=== PATIENT | female | born 1970 | race Caucasian/White ===

== ENCOUNTER 2019-04-01 13:37 | Outpatient (CLI) | payer OTHER | END 2019-04-01 23:59 | disposition home or self-care (01) | LOC: CFH 13:37 | PROVIDERS: ATTEND Obstetrics & Gynecology Female Pelvic Medicine and Reconstructive Surgery | DX: N63.41 Unspecified lump in right breast, subareolar (principal); R92.1 Mammographic calcification found on diagnostic imaging of breast | CPT/HCPCS: 77065 ==

== ENCOUNTER 2019-06-10 08:10 | Outpatient (CLI) | payer OTHER | END 2019-06-10 23:59 | disposition home or self-care (01) | LOC: CFH 08:10 | PROVIDERS: ATTEND Obstetrics & Gynecology Female Pelvic Medicine and Reconstructive Surgery | DX: N63.10 Unspecified lump in the right breast, unspecified quadrant (principal); Z53.8 Procedure and treatment not carried out for other reasons | CPT/HCPCS: 19081 ==

== ENCOUNTER 2019-08-18 11:53 | Day surgery (SDC) | payer OTHER ==
[~2019-08-18] VITALS: Ht 157.5 cm; Wt 52.2 kg
[~2019-08-18 11:53] MED LIST: BUPIVACAINE/PF 0.5% ONE; HYDR200T72 PO
[2019-08-18] MEDS ORDERED: LIDOCAINE 1%-EPI 1:100K, 20ML ONE (14:19)
[2019-08-18] MEDS ORDERED: SODIUM BICARBONATE 4.2%, 5ML ONE (14:19)
[2019-08-18] MEDS ORDERED: LIDOCAINE 1%, 20ML ONE (14:19)
[2019-08-18] MEDS ORDERED: LACTATED RINGERS 1,000 ML IV SCH (14:24)
[2019-08-18] MEDS ORDERED: GABAPENTIN 300 MG CAPSULE PO ONE (14:30)
[2019-08-18] MEDS ORDERED: SCOPOLAMINE PATCH, 1.5MG PATCH.TD72 TD ONE (14:30)
[2019-08-18] MEDS ORDERED: ONDANSETRON ODT 8 MG PO ONE (14:30)
[2019-08-18] MEDS ORDERED: ACETAMINOPHEN 500 MG TABLET PO ONE (14:30)
[2019-08-18] MEDS ORDERED: FENTANYL PF 250 MCG/5ML ONE (14:46)
[2019-08-18] MEDS ORDERED: MIDAZOLAM 1 MG/ML, 2ML ONE (14:46)
[2019-08-18] MEDS ORDERED: PROPOFOL 50 ML ONE (14:46)
[2019-08-18 14:54] LABS: HCG UR SG 1.005 (1.003-1.030)
[2019-08-18] MEDS ORDERED: DEXAMETHASONE 4 MG/ML, 1ML ONE (14:58)
[2019-08-18] MEDS ORDERED: ONDANSETRON 2MG/ML, 2ML ONE (14:58)
[2019-08-18] MEDS ORDERED: CEFAZOLIN 1,000 MG ONE (15:06)
[2019-08-18] MEDS ORDERED: EPINEPHRINE 1 MG/ML, 1ML INFIL ONE (15:14)
[2019-08-18] MEDS ORDERED: HYDROmorphone 2 MG/ML, 1ML IVPush PRN (15:30)
[2019-08-18] MEDS ORDERED: OXYcodone 5 MG/5 ML ORAL.SOL UDC PO PRN (15:30)
[2019-08-18] MEDS ORDERED: EPHEDRINE 50 MG/ML, 1ML IM PRN (15:30)
[2019-08-18] MEDS ORDERED: ACETAMINOPHEN 325 MG TABLET PO PRN (15:30)
[2019-08-18] MEDS ORDERED: MEPERIDINE/PF 25MG/ML,1ML IVPush PRN (15:30)
[2019-08-18] MEDS ORDERED: PROMETHAZINE 25 MG/ML, 1ML IV PRN (15:30)
[2019-08-18] MEDS ORDERED: DIAZEPAM 5 MG/ML, 2ML IVPush PRN (15:30)
[2019-08-18] MEDS ORDERED: ONDANSETRON 2MG/ML, 2ML IV PRN (15:30)
[2019-08-18] MEDS ORDERED: FENTANYL PF 100 MCG/2ML IV PRN (15:30)
[2019-08-18] MEDS ORDERED: EPHEDRINE 50 MG/ML, 1ML IVPush PRN (15:30)
[2019-08-18] MEDS ORDERED: ONDANSETRON ODT 8 MG PO PRN (15:30)
[2019-08-18] MEDS ORDERED: MIDAZOLAM 1 MG/ML, 2ML IV PRN (15:30)
[2019-08-18] MEDS ORDERED: DIPHENHYDRAMINE 50 MG/ML, 1ML IVPush PRN (15:30)
== END 2019-08-18 17:25 | disposition home or self-care (01) ==
LOC: SDC 11:53
PROVIDERS: ATTEND Surgery
DX: R92.0 Mammographic microcalcification found on diagnostic imaging of breast (principal); N60.21 Fibroadenosis of right breast; Z88.0 Allergy status to penicillin; Z88.1 Allergy status to other antibiotic agents
CPT/HCPCS: 19125; 19281; 81025; 88307; J0171; J0690; J1100; J2250; J2405; J2704; J3010; J3490; J7120

== ENCOUNTER → 2020-10-09 | Outpatient (CLI) | payer OTHER ==
[~2020-10-09] MED LIST changes: -BUPIVACAINE/PF 0.5% ONE
== END | disposition home or self-care (01) ==
LOC: CFH 07:10
PROVIDERS: ATTEND Obstetrics & Gynecology Female Pelvic Medicine and Reconstructive Surgery
DX: Z12.31 Encounter for screening mammogram for malignant neoplasm of breast (principal)
CPT/HCPCS: 77063; 77067

== ENCOUNTER → 2021-03-22 | Outpatient (CLI) | payer OTHER | END | disposition home or self-care (01) | LOC: CFH 12:41 | PROVIDERS: ATTEND Obstetrics & Gynecology Female Pelvic Medicine and Reconstructive Surgery | DX: N63.23 Unspecified lump in the left breast, lower outer quadrant (principal) | CPT/HCPCS: 76642; 77061; 77065; G0279 ==

== ENCOUNTER 2021-06-06 14:07 | Day surgery (SDC) | payer OTHER ==
[~2021-06-06] VITALS: Ht 157.5 cm; Wt 52.1 kg
[2021-06-06 14:39] VITALS: BP 135/80
== END 2021-06-06 18:15 | disposition home or self-care (01) ==
LOC: OR 14:07
PROVIDERS: ATTEND Surgery
DX: D48.62 Neoplasm of uncertain behavior of left breast (principal); D24.2 Benign neoplasm of left breast; G43.909 Migraine, unspecified, not intractable, without status migrainosus; M32.9 Systemic lupus erythematosus, unspecified; K21.9 Gastro-esophageal reflux disease without esophagitis; Z20.822 Contact with and (suspected) exposure to COVID-19; Z79.899 Other long term (current) drug therapy; Z88.0 Allergy status to penicillin; Z88.1 Allergy status to other antibiotic agents
CPT/HCPCS: 19120; 81025; 87635; 88307; J0690; J2250; J2405; J2704; J3010; J7120